=== PATIENT | male | born 1960 | race Caucasian/White ===

== ENCOUNTER 2020-06-13 23:45 | Emergency (ER) | payer OTHER ==
[~2020-06-13] VITALS: Ht 182.9 cm; Wt 106.1 kg
[2020-06-14 00:02] VITALS: Ht 182.9 cm; Wt 106.1 kg
[2020-06-14 00:56] LABS: BASOPHIL % 0.8 % (0.2-1.5); PLATELET COUNT 197 x10^3mcL (152-348); RED CELL DISTRIBUTION WIDTH 12.8 % (12.1-16.2)
[2020-06-14 01:21] LABS: CALCIUM 9.1 mg/dL (8.5-10.1); CARBON DIOXIDE 27.4 mmol/L (21-32); CHLORIDE SERUM 103 mmol/L (98-107); GFR1 > 60 mL/min; GLUCOSE SERUM 131 mg/dL (74-106); POTASSIUM SERUM 3.5 mmol/L (3.5-5.1); SODIUM SERUM 135 mmol/L (136-145)
[2020-06-14 01:22] LABS: ALBUMIN 3.5 g/dL (3.4-5.0); LIPASE 146 IU/L (73-393)
[2020-06-14 02:34] VITALS: BP 136/77
[2020-06-14 23:19] LABS: ALKALINE PHOSPHATASE 50 U/L (46-116); ALT/SGPT 43 U/L (16-63); AST/SGOT 15 U/L (15-37); BILIRUBIN TOTAL 0.4 mg/dL (0.20-1.00); TOTAL PROTEIN, SERUM 7.3 g/dL (6.4-8.2)
== END 2020-06-14 03:05 | disposition home or self-care (01) ==
LOC: ED 23:45
PROVIDERS: Emergency Medicine
DX: K52.9 Noninfective gastroenteritis and colitis, unspecified (principal)